=== PATIENT | male | born 1975 | race Hispanic/Latino ===

== ENCOUNTER 2020-05-20 20:49 | Emergency (ER) | payer BC ==
[2020-05-20] MEDS ORDERED: KETOROLAC 30 MG/ML INJ ONE (22:11)
--- NOTE | 2020-05-20 22:45 | EDPHYS ---
Physician Documentation [facility] Name: Brayden Sweeney Age: 45 yrs Sex: Male : 1975 Arrival Date: 05/20/2020 Time: 20:50 Bed 26 Private MD: ED Physician David Sears HPI: 05/20 22:40 This 45 yrs old Male presents to ER via Ambulatory with complaints of Arm jr8 Injury. 22:40 The complaints affect the posterior aspect of right shoulder. Context: The problem was jr8 sustained at a gym, resulted from lifting or pulling, weight lifting via bench press. Onset: The symptoms/episode began/occurred acutely, today. Modifying factors: The symptoms are alleviated by nothing. the symptoms are aggravated by movement. Associated signs and symptoms: The patient has no apparent associated signs or symptoms. Severity of symptoms: At their worst the symptoms were moderate, in the emergency department the symptoms are unchanged. The patient has not experienced similar symptoms in the past. The patient has not recently seen a physician. Patient stated that he was doing bench press and felt pop to posterior shoulder. Has had pain since incident . Historical: - Allergies: 21:26 No Known Allergies; ll1 - PMHx: 21:26 Diabetes - NIDDM; ll1 - PSHx: 21:26 None; ll1 - Immunization history:: Flu vaccine is not up to date. - Social history:: Smoking status: Patient denies any tobacco usage or history of. ROS: 22:40 Eyes: Negative for injury, pain, redness, and discharge, ENT: Negative for injury, jr8 pain, and discharge, Neck: Negative for injury, pain, and swelling, Cardiovascular: Negative for chest pain, palpitations, and edema, Respiratory: Negative for shortness of breath, cough, wheezing, and pleuritic chest pain, Abdomen/GI: Negative for abdominal pain, nausea, vomiting, diarrhea, and constipation, Back: Negative for injury and pain, Skin: Negative for injury, rash, and discoloration, Neuro: Negative for headache, weakness, numbness, tingling, and seizure. 22:40 MS/extremity: Positive for pain, tenderness, of the posterior aspect of right shoulder. Exam: 22:40 Constitutional: This is a well developed, well nourished patient who is awake, alert, jr8 and in no acute distress. Cardiovascular: Regular rate and rhythm with a normal S1 and S2. No gallops, murmurs, or rubs. Normal PMI, no JVD. No pulse deficits. Respiratory: Lungs have equal breath sounds bilaterally, clear to auscultation and percussion. No rales, rhonchi or wheezes noted. No increased work of breathing, no retractions or nasal flaring. Skin: Warm, dry with normal turgor. Normal color with no rashes, no lesions, and no evidence of cellulitis. Neuro: Awake and alert, GCS 15, oriented to person, place, time, and situation. Cranial nerves II-XII grossly intact. Motor strength 5/5 in all extremities. Sensory grossly intact. Cerebellar exam normal. Normal gait. 22:40 Musculoskeletal/extremity: Extremities: grossly normal except: noted in the posterior aspect of right shoulder: pain, tenderness, ROM: intact in all extremities, full active range of motion, full passive range of motion, limited active range of motion due to pain, limited passive range of motion due to pain, Circulation is intact in all extremities. Sensation intact. Vital Signs: 21:24 BP 126 / 85; Pulse 78; Resp 18; Temp 98.0; Pulse Ox 99% ; Weight 92.99 kg; Height 6 ft. ll1 0 in. (182.88 cm); Pain 10/10; 23:18 BP 120 / 87; Pulse 78; Resp 18; Pulse Ox 100% on R/A; aj1 21:24 Body Mass Index 27.80 (92.99 kg, 182.88 cm) ll1 Procedures: 22:42 Splinting: Splint applied to right arm using sling, applied by tech. Examined by elsa lujan post splint application: neurovascular intact, 2+ distal pulses palpable, brisk capillary refill noted, Patient tolerated well. MDM: 21:32 Patient medically screened. jr8 22:40 Data reviewed: vital signs, nurses notes, radiologic studies, plain films. Data jrKim interpreted: Pulse oximetry: on room air is 99 %. Interpretation: normal. Counseling: I had a detailed discussion with the patient and/or guardian regarding: the historical points, exam findings, and any diagnostic results supporting the discharge/admit diagnosis, radiology results, the need for outpatient follow up, a orthopedic surgeon, to return to the emergency department if symptoms worsen or persist or if there are any questions or concerns that arise at home. ED course: Discussed with patient that it sounds like he tore a muscle/tendon to posterior aspect of shoulder based on exam. No weight lifting and will put on NSAID. Needs to f/U with Ortho . 05/20 21:56 Order name: XRAY Shoulder RIGHT 2 view jr8 05/20 22:43 Order name: Sling; Complete Time: 22:59 jr8 Administered Medications: 22:01 Drug: TORadol 30 mg Route: IM; Site: left deltoid; aj1 23:18 Follow up: Response: No adverse reaction aj1 Disposition: 05/21 06:01 Co-signature as Attending Physician, David Sears MD I agree with the assessment and tw4 plan of care. Disposition: 05/20/20 22:44 Discharged to Home. Impression: Pain in right shoulder, Strain of muscle(s) and tendon(s) of the rotator cuff of right shoulder. - Condition is Stable. - Discharge Instructions: Rotator Cuff Injury, Shoulder Pain. - Prescriptions for meloxicam 15 mg Oral tablet - take 1 tablet by ORAL route once daily As needed; 20 tablet. - Medication Reconciliation Form, Thank You Letter, Antibiotic Education, Prescription Opioid Use form. - Follow up: Jacques Gao MD; When: 7 - 10 days; Reason: Recheck today's complaints, Continuance of care, Re-evaluation by your physician. - Problem is new. - Symptoms have improved. Signatures: Dispatcher [employer] EDMS Lauren Sanchez RN RN aj1 Teo Morrissey PA PA jr8 David Sears MD MD tw4 Donnell Mckenna RN RN ll1 Corrections: (The following items were deleted from the chart) 05/20 23:19 22:44 05/20/2020 22:44 Discharged to Home. Impression: Pain in right shoulder; Strain aj1 of muscle(s) and tendon(s) of the rotator cuff of right shoulder. Condition is Stable. Forms are Medication Reconciliation Form, Thank You Letter, Antibiotic Education, Prescription Opioid Use. Follow up: Dr. Jacques Gao; When: 7 - 10 days; Reason: Recheck today's complaints, Continuance of care, Re-evaluation by your physician. Problem is new. Symptoms have improved. jr8
--- NOTE | 2020-05-20 22:45 | ER ---
Nurse's Notes [facility] Name: Brayden Sweeney Age: 45 yrs Sex: Male : 1975 Arrival Date: 05/20/2020 Time: 20:50 Bed 26 Private MD: Diagnosis: Pain in right shoulder;Strain of muscle(s) and tendon(s) of the rotator cuff of right shoulder Presentation: 05/20 21:24 Chief complaint: Patient states: Lifting weights at 1930 today. [place] a pop to right ll1 upper arm. Pain since. Coronavirus screen: Client denies travel out of the [place] in the last 14 days. At this time, the client does not indicate any symptoms associated with coronavirus-19. Ebola Screen: Patient denies travel to an Ebola-affected area in the 21 days before illness onset. Initial Sepsis Screen: Does the patient meet any 2 criteria? No. Patient's initial sepsis screen is negative. Risk Assessment: Do you want to hurt yourself or someone else? Patient reports no desire to harm self or others. Onset of symptoms was May 20, 2020. 21:24 Method Of Arrival: Ambulatory ll1 21:24 Acuity: RHIANNA 3 ll1 Historical: - Allergies: 21:26 No Known Allergies; ll1 - PMHx: 21:26 Diabetes - NIDDM; ll1 - PSHx: 21:26 None; ll1 - Immunization history:: Flu vaccine is not up to date. - Social history:: Smoking status: Patient denies any tobacco usage or history of. Screenin:35 Abuse screen: Denies threats or abuse. Denies injuries from another. Nutritional aj1 screening: No deficits noted. Tuberculosis screening: No symptoms or risk factors identified. 23:18 Fall Risk None identified. aj1 Assessment: 21:35 General: Appears in no apparent distress. uncomfortable, Behavior is calm, cooperative, aj1 appropriate for age. Pain: Complains of pain in right bicep and right tricep Pain does not radiate. Pain currently is 10 out of 10 on a pain scale. Quality of pain is described as sharp. Neuro: Level of Consciousness is awake, alert, obeys commands, Oriented to person, place, time, situation. Cardiovascular: Patient's skin is warm and dry. Respiratory: Airway is patent Respiratory effort is even, unlabored, Respiratory pattern is regular, symmetrical. GI: No signs and/or symptoms were reported involving the gastrointestinal system. : No signs and/or symptoms were reported regarding the genitourinary system. EENT: No signs and/or symptoms were reported regarding the EENT system. Derm: No signs and/or symptoms reported regarding the dermatologic system. Skin is pink, warm \T\ dry. normal. Musculoskeletal: Range of motion: limited in right shoulder. Vital Signs: 21:24 BP 126 / 85; Pulse 78; Resp 18; Temp 98.0; Pulse Ox 99% ; Weight 92.99 kg; Height 6 ft. ll1 0 in. (182.88 cm); Pain 10/10; 23:18 BP 120 / 87; Pulse 78; Resp 18; Pulse Ox 100% on R/A; aj1 21:24 Body Mass Index 27.80 (92.99 kg, 182.88 cm) ll1 ED Course: 20:50 Patient arrived in ED. cl3 21:26 Triage completed. ll1 21:26 Teo Morrissey PA is PHCP. jr8 21:26 David Sears MD is Attending Physician. jr8 21:26 Arm band placed on Patient placed in an exam room, on a stretcher. ll1 21:28 Lauren Sanchez, RN is Primary Nurse. aj1 21:35 Patient has correct armband on for positive identification. Bed in low position. Call aj1 light in reach. 21:35 No provider procedures requiring assistance completed. aj1 22:28 XRAY Shoulder RIGHT 2 view In Process Unspecified. EDMS 22:43 Jacques Gao MD is Referral Physician. jr8 23:18 Patient did not have IV access during this emergency room visit. aj1 Administered Medications: 22:01 Drug: TORadol 30 mg Route: IM; Site: left deltoid; aj1 23:18 Follow up: Response: No adverse reaction aj1 Outcome: 22:44 Discharge ordered by . jr8 23:18 Discharged to home ambulatory, with family. aj1 23:18 Condition: good 23:18 Discharge instructions given to patient, family, Instructed on discharge instructions, follow up and referral plans. medication usage, Demonstrated understanding of instructions, follow-up care, medications, Prescriptions given X 1. 23:19 Patient left the ED. aj1 Signatures: Dispatcher [employer] EDMS Sanchez, Lauren, RN RN aj1 Teo Morrissey PA PA jr8 Aileen Mckenna cl3 Donnell Mckenna, RN RN ll1
[2020-05-21 01:13] VITALS: TEMP 98
[2020-05-21 01:15] VITALS: BP 120/87; O2SAT 100
--- NOTE | 2020-05-21 07:37 | RAD REPORT ---
EXAM DESCRIPTION: Shoulder Right 2 View - 05/20/2020 10:27 pm CLINICAL HISTORY: PAIN, pain with lifting injury COMPARISON: No comparisons TECHNIQUE: Internal and external rotation views of the right shoulder were obtained. FINDINGS: There is no fracture or dislocation. AC joint is normal in appearance. Acromial humeral j oint space is normal. On the external rotation view there are faint calcific densities along the supe rolateral margin of the humeral head. Calcific tendinitis/tendinosis would be possible. IMPRESSION: For no fracture, dislocation or acute finding. Faint calcific densities could indicate calcific tendinitis/tendinosis. Concerns for rotator cuff pat hology can be addressed with MR imaging.
== END 2020-05-20 23:19 | disposition home or self-care (01) ==
LOC: ER 20:49
DX: S46.011A Strain of muscle(s) and tendon(s) of the rotator cuff of right shoulder, initial encounter (principal); Y93.B3 Activity, free weights; Y92.9 Unspecified place or not applicable
CPT/HCPCS: 96372; 99283